=== PATIENT | male | born 1955 | race Caucasian/White ===

== ENCOUNTER → 2016-08-22 | Outpatient (CLI) | payer MEDICARE ==
[2016-08-22 13:36] LABS: Potassium 5.2 mmol/L (3.5-5.1)
== END | disposition home or self-care (01) ==
LOC: LABWHC1 13:06
PROVIDERS: ATTEND Family Medicine
DX: E87.5 Hyperkalemia (principal)
CPT/HCPCS: 36415; 80051

== ENCOUNTER → 2016-08-26 | Outpatient (CLI) | payer MEDICARE ==
[2016-08-26 16:18] LABS: Potassium 4.6 mmol/L (3.5-5.1)
== END | disposition home or self-care (01) ==
LOC: LABWHC1 15:57
PROVIDERS: ATTEND Nurse Practitioner Family
DX: E87.5 Hyperkalemia (principal)
CPT/HCPCS: 36415; 80051

== ENCOUNTER → 2019-02-04 | Outpatient (CLI) | payer MEDICARE ==
--- NOTE | 2019-02-04 20:48 | CONS ---
CONSULTATION DATE OF SERVICE: 02/04/2019 54-year-old gentleman has been evaluated [facility] for obstructive sleep apnea-hypopnea syndrome. HISTORY OF PRESENT ILLNESS SLEEP WAKE EVALUATION: Patient has history of obstructive sleep apnea for about 12 years. He was diagnosed with sleep apnea in [place]. He was started on treatment with CPAP, but when he moved to [place] in 2008 he lost his CPAP unit. SLEEP SCHEDULE: Presently his sleep schedule from 8 p.m. until 6 a.m. on basically 7 days a week. FALLING ASLEEP: No problems with falling asleep, although he has TV in bedroom. DURING SLEEP: He sleeps on the side position. He snores and has witnessed episodes of stopped breathing during the sleep. He wakes up gasping for air, panic attacks and nocturia up to 3 times. DURING THE DAY/SLEEP WAKE EVALUATION: No history of hypnagogic hallucinations, sleep paralysis or cataplexy. [place] Sleepiness Scale is 6. PAST MEDICAL HISTORY: Positive for COPD. PAST SURGICAL HISTORY: Bilateral surgery on the ears. SOCIAL HISTORY: Positive for smoking for 50 years, up to 2 packs per day, so subsequently about 100 pack year smoking. Alcohol consumption socially. The patient is a [employer] truck driver. MEDICATIONS: Motrin 500 mg. REVIEW OF SYSTEMS: Multiple awakenings from sleep, cough in the morning. PHYSICAL EXAM: gentleman without distress. BP 130/79, HR about 100, RR 16, height 5 feet 8 inches, weight 188, body mass index 28.5, temperature 97.7, oxygen saturation at room air 95%. Oropharynx: Low position of soft palate. Mallampati 4. Some restriction of nasal breathing. Wide neck 16-1/2 inches in circumference. Lungs few rales. Neck Supple, no JVD. Thyroid is not palpable. LUNGS: A few rales. HEART S1, S2 regular. No murmurs, gallops, or rubs. ABDOMEN Soft and nontender. Bowel sounds are present. No organomegaly appreciated. EXTREMITIES No clubbing or cyanosis. LICENSING WORKER Awake, alert, and oriented X3. Cranial nerves 2 to 7 intact. There is no fasciculation or atrophy. noted. No focal deficits observed. IMPRESSION: 1. Snoring, witnessed episodes of stopped breathing during the sleep, extremely low position of soft palate, wide neck, History of obstructive sleep apnea in the past. Obstructive sleep apnea-hypopnea syndrome. 2. History of smoking for about 100 pack years. 3. Chronic obstructive pulmonary disease. 4. Back problems. 5. Status post bilateral ear surgery. 6. A [employer] truck driver. PLAN: 1. Polysomnography for evaluation of patient's breathing during sleep. 2. CPAP/BiPAP titration if sleep study confirms obstructive sleep apnea-hypopnea syndrome. 3. Preferable position during sleep on the side. 4. No driving if patient feels any sleepiness. 5. I will see patient for follow up visit to explain results of testing and following plan. 6. I insisted for patient to find a primary care physician. 7. Smoking cessation problem. Sincerely, Tristan Rojas MD, PhD, FAASM Diplomat of [place] [employer] [place] [employer] Lace [facility] MMMYLESL / IJN: [id number] /
== END | disposition home or self-care (01) ==
LOC: SLEEP 14:09
PROVIDERS: ATTEND Internal Medicine
DX: G47.33 Obstructive sleep apnea (adult) (pediatric) (principal); J44.9 Chronic obstructive pulmonary disease, unspecified; M53.9 Dorsopathy, unspecified; Z87.891 Personal history of nicotine dependence; Z99.89 Dependence on other enabling machines and devices; Z79.1 Long term (current) use of non-steroidal anti-inflammatories (NSAID); Z98.890 Other specified postprocedural states
CPT/HCPCS: 99211

== ENCOUNTER 2020-03-22 08:28 | Inpatient (IN) | payer MEDICARE ==
[2020-03-22 08:44] VITALS: TEMP 98.2
[2020-03-22] MEDS ORDERED: ACETAMINOPHEN TAB 325 MG TAB PO STA (08:49)
[2020-03-22] MEDS ORDERED: SODIUM CHLORIDE 0.9% 1,000 ML IV ONE (08:50)
[2020-03-22] MEDS ORDERED: SODIUM CHLORIDE 0.9% 1,000 ML IV SCH (09:00)
[2020-03-22 09:22] LABS: Basophils # (A) 0.1 k/uL (0-0.2); Basophils % (A) 0 %; Eosinophils # (A) 0.3 k/uL (0-0.7); Eosinophils % (A) 2 %; HGB 16.2 gm/dL (13.0-17.5); Lymphocytes # (A) 0.8 k/uL (1.0-4.8); Lymphocytes % (A) 4 %; MCH 31.5 pg (25.0-35.0); MCHC 33.2 g/dL (31.0-37.0); MCV 94.8 fL (80.0-100.0); Mean Platelet Volume 7.6; Monocytes # (A) 0.8 k/uL (0-1.0); Monocytes % (A) 5 %; Neutrophils # (A) 16.1 k/uL (1.3-7.7); Neutrophils % (A) 88 %; Platelet Count 261 k/uL (150-450); RBC 5.16 m/uL (4.30-5.90); RDW 12.7 % (11.5-15.5); WBC 18.3 k/uL (3.8-10.6)
--- NOTE | 2020-03-22 09:24 | XR ---
EXAMINATION TYPE: XR chest 1V portable DATE OF EXAM: 03/22/2020 Comparison: None Clinical History: 65-year-old male fever and chills, Suspected COVID-19 pneumonia Findings: Heart normal size. Aorta and pulmonary vasculature within normal limits. Some phleboliths emphysemato us change in the upper lungs. Dense consolidation in the periphery of the right upper and midlung. No pleural effusion. Impression: COPD with dense consolidation in the periphery of the right upper and midlung. Findings suggest pneum onia.
[2020-03-22] MEDS ORDERED: IPRATROPIUM-ALBUTEROL 3 ML NEB INHALATION STA (09:29)
[2020-03-22] MEDS ORDERED: AZITHROMYCIN 500 MG in SODIUM CHLORIDE 0.9% 250 ML IVPB STA (09:29)
[2020-03-22] MEDS ORDERED: methylPREDNISolone SOD SUCCI 125 MG/2 ML VIAL IV STA (09:29)
[2020-03-22 09:32] LABS: D-Dimer 0.59 mg/L FEU (<0.60)
[2020-03-22 09:33] LABS: Albumin 3.7 g/dL (3.5-5.0); Calcium 9.1 mg/dL (8.4-10.2); Partial Thromboplastin Time 28.3 sec (22.0-30.0); Potassium 4.6 mmol/L (3.5-5.1); Total Protein 7.5 g/dL (6.3-8.2)
--- NOTE | 2020-03-22 09:49 | ED ---
Headache HPI - General Chief Complaint: Headache Stated Complaint: SOB ,headache, fever Time Seen by Provider: 03/22/20 08:47 Mode of arrival: wheelchair Limitations: no limitations - History of Present Illness Initial Comments: 65yo male presents today for chief complaint of cough fever bodyaches headache. Patient states he has felt overall unwell for the past 3 days. He admits to increased SOB from baseline, cough body aches and slight headache. Denies neck stiffness. Patient denies nausea, vomiting diarrhea. Pt concerned of covid. Patient denies chest pain, pain with deep inspiration, leg swelling. Patient denies cardiac history. Patient denies history of DVT/PE. Patient upon arrival does not appear in distress. - Related Data Home Medications Medication Instructions Recorded Confirmed Fluticasone/Umeclidin/Vilanter 1 puff INHALATION RT-DAILY 03/22/20 03/22/20 [Trelegy Ellipta 100-62.5-25] Ibuprofen [Motrin] 800 mg PO Q6H PRN 03/22/20 03/22/20 Multivitamins, Thera [Multivitamin 1 tab PO DAILY 03/22/20 03/22/20 (formulary)] predniSONE 10 mg PO DAILY 03/22/20 03/22/20 Allergies Allergy/AdvReac Type Severity Reaction Status Date / Time Sulfa (Sulfonamide AdvReac Itching Verified 03/22/20 10:11 Antibiotics) Review of Systems ROS Statement: Those systems with pertinent positive or pertinent negative responses have been documented in the HPI. ROS Other: All systems not noted in ROS Statement are negative. Past Medical History Additional Past Medical History / Comment(s): slipped disc in neck and sciatic pain History of Any Multi-Drug Resistant Organisms: None Reported Past Surgical History: Ear Surgery Past Psychological History: No Psychological Hx Reported Smoking Status: Current every day smoker Past Alcohol Use History: None Reported Past Drug Use History: None Reported General Exam - General Exam Comments Initial Comments: General: The patient is awake and alert, in no distress Eye: +3 mm pupils are equal, round and reactive to light, extra-ocular movements are intact. No nystagmus. There is normal conjunctiva bilaterally. No signs of icterus. Ears, nose, mouth and throat: There are moist mucous membranes and no oral lesions. Neck: The neck is supple, there is no tenderness or JVD. Cardiovascular: There is a regular rate and rhythm. No murmur, rub or gallop is appreciated. Respiratory: Lungs are clear to auscultation, respirations are non-labored, breath sounds are equal. No wheezes, stridor, rales, or rhonchi. Gastrointestinal: Soft, non-distended, non-tender abdomen without masses or organomegaly noted. There is no rebound or guarding present. Musculoskeletal: Normal ROM, no tenderness. Strength 5/5. Sensation intact. Radial pulses equal bilaterally 2+. Neurological: A&O x 3. CN II-XII intact grossly, There are no obvious motor or sensory deficits. Coordination appears grossly intact. Speech is normal. Skin: Skin is warm and dry and no rashes or lesions are noted. No LE edema. Psychiatric: Cooperative, appropriate mood & affect, normal judgment. Limitations: no limitations Course Vital Signs 03/22/20 03/22/20 03/22/20 08:39 11:07 11:17 Temperature 98.2 F Pulse Rate 67 80 79 Respiratory 20 Rate Blood Pressure 94/65 O2 Sat by Pulse 95 Oximetry Medical Decision Making - Medical Decision Making White count elevated. CXR concerning for pneumonia. Patient symptoms appear consistent. Patient covid (-). patient will be admitted for iv abx and monitoring. patient agreeable dr. clark accepted admission. - Lab Data Result diagrams: 03/22/20 09:05 03/22/20 09:05 Lab Results 03/22/20 03/22/20 03/22/20 Range/Units 09:05 09:05 09:05 WBC 18.3 H (3.8-10.6) k/uL RBC 5.16 (4.30-5.90) m/uL Hgb 16.2 (13.0-17.5) gm/dL Hct 49.0 (39.0-53.0) % MCV 94.8 (80.0-100.0) fL MCH 31.5 (25.0-35.0) pg MCHC 33.2 (31.0-37.0) g/dL RDW 12.7 (11.5-15.5) % Plt Count 261 (150-450) k/uL MPV 7.6 Neutrophils % 88 % Lymphocytes % 4 % Monocytes % 5 % Eosinophils % 2 % Basophils % 0 % Neutrophils # 16.1 H (1.3-7.7) k/uL Lymphocytes # 0.8 L (1.0-4.8) k/uL Monocytes # 0.8 (0-1.0) k/uL Eosinophils # 0.3 (0-0.7) k/uL Basophils # 0.1 (0-0.2) k/uL PT 10.0 (9.0-12.0) sec INR 1.0 (<1.2) APTT 28.3 (22.0-30.0) sec D-Dimer 0.59 (<0.60) mg/L FEU Sodium 132 L (137-145) mmol/L Potassium 4.6 (3.5-5.1) mmol/L Chloride 103 (98-107) mmol/L Carbon Dioxide 23 (22-30) mmol/L Anion Gap 6 mmol/L BUN 24 H (9-20) mg/dL Creatinine 1.26 H (0.66-1.25) mg/dL Est GFR (CKD-EPI)AfAm 68 (>60 ml/min/1.73 sqM) Est GFR (CKD-EPI)NonAf 59 (>60 ml/min/1.73 sqM) Glucose 125 H (74-99) mg/dL Plasma Lactic Acid Axel (0.7-2.0) mmol/L Calcium 9.1 (8.4-10.2) mg/dL Magnesium 2.0 (1.6-2.3) mg/dL Total Bilirubin 1.0 (0.2-1.3) mg/dL AST 21 (17-59) U/L ALT 19 (4-49) U/L Alkaline Phosphatase 81 (38-126) U/L Lactate Dehydrogenase 503 (313-618) U/L C-Reactive Protein 189.7 H (<10.0) mg/L Total Protein 7.5 (6.3-8.2) g/dL Albumin 3.7 (3.5-5.0) g/dL 03/22/20 Range/Units 09:05 WBC (3.8-10.6) k/uL RBC (4.30-5.90) m/uL Hgb (13.0-17.5) gm/dL Hct (39.0-53.0) % MCV (80.0-100.0) fL MCH (25.0-35.0) pg MCHC (31.0-37.0) g/dL RDW (11.5-15.5) % Plt Count (150-450) k/uL MPV Neutrophils % % Lymphocytes % % Monocytes % % Eosinophils % % Basophils % % Neutrophils # (1.3-7.7) k/uL Lymphocytes # (1.0-4.8) k/uL Monocytes # (0-1.0) k/uL Eosinophils # (0-0.7) k/uL Basophils # (0-0.2) k/uL PT (9.0-12.0) sec INR (<1.2) APTT (22.0-30.0) sec D-Dimer (<0.60) mg/L FEU Sodium (137-145) mmol/L Potassium (3.5-5.1) mmol/L Chloride (98-107) mmol/L Carbon Dioxide (22-30) mmol/L Anion Gap mmol/L BUN (9-20) mg/dL Creatinine (0.66-1.25) mg/dL Est GFR (CKD-EPI)AfAm (>60 ml/min/1.73 sqM) Est GFR (CKD-EPI)NonAf (>60 ml/min/1.73 sqM) Glucose (74-99) mg/dL Plasma Lactic Acid Axel 1.3 (0.7-2.0) mmol/L Calcium (8.4-10.2) mg/dL Magnesium (1.6-2.3) mg/dL Total Bilirubin (0.2-1.3) mg/dL AST (17-59) U/L ALT (4-49) U/L Alkaline Phosphatase (38-126) U/L Lactate Dehydrogenase (313-618) U/L C-Reactive Protein (<10.0) mg/L Total Protein (6.3-8.2) g/dL Albumin (3.5-5.0) g/dL Disposition Clinical Impression: Fever, Dyspnea, Cough, Pneumonia Disposition: ADMITTED IP TO THIS [facility] Condition: Stable Is patient prescribed a controlled substance at d/c from ED?: No Time of Disposition: 12:17 Decision to Admit Reason: Admit from EC Decision Date: 03/22/20 Decision Time: 10:00
[2020-03-22] MEDS ORDERED: NALOXONE 0.4 MG/ML 1 ML VIAL IV PRN (09:58)
[2020-03-22 10:26] LABS: C Reactive Protein 189.7 mg/L (<10.0)
[2020-03-22 12:34] VITALS: RESP 18
--- NOTE | 2020-03-22 14:02 | P.HPIM ---
History of Present Illness Please consider this note as combined H&P and discharge summary This is a pleasant 65 years old male with no significant past medical history except for sciatic pain. Presents because of cough and headache and fever. Patient denies dyspnea, and exited through a phlegm but no chest pain. He said he came to the hospital because he wanted to check for viral infection and Covid, however he was informed that the disc and back negative and now he wants to leave. I told the patient that she has right lung pneumonia and he will need IV antibiotics however does not want to stay in the hospital, risks including but not limited to worsening pneumonia, respiratory failure, intubation, organ dysfunction, sepsis, and/or are explained to him he verbalized understanding but he does not want to stay in the hospital. I told the patient is as anything I can do to prevent him from leaving AMA and he said no. Based upon my evaluation patient has capacity to make medical decision Admission vitals are 101/84, saturating 96% on room air, breathing rate is 18 and heart rate is 82, his of febrile with temperature 98.2 that showed leukocytosis of 18.3 with lymphocytes 0.8 which is low. Sodium was slightly low at 132, creatinine slightly elevated at 1.26. Glucose 125. Coronary varus not detected. C-reactive protein is slightly elevated at 189. Chest x-ray showing COPD with dense consolidation in the periphery of the right upper and midline suggesting pneumonia An emergency room he received Tylenol, 2 L of normal saline, started on ceftriaxone and azithromycin and sewn withdrawal once. Patient he says that he smokes 1.5 pack per day Mellisa is counseled that he does not want to quit Review of Systems CONSTITUTIONAL: No fever, no malaise, no fatigue. HEENT: No recent visual problems or hearing problems. Denied any sore throat. CARDIOVASCULAR: No orthopnea, PND, no palpitations, no syncope. PULMONARY: No shortness of breath, no cough, no hemoptysis. GASTROINTESTINAL: No diarrhea, no nausea, no vomiting, no abdominal pain. Normoactive bowel sounds. NEUROLOGICAL: No headaches, no weakness, no numbness. HEMATOLOGICAL: Denies any bleeding or petechiae. GENITOURINARY: Denies any burning micturition, frequency, or urgency. MUSCULOSKELETAL/RHEUMATOLOGICAL: Denies any joint pain, swelling, or any muscle pain. ENDOCRINE: Denies any polyuria or polydipsia. Past Medical History Additional Past Medical History / Comment(s): slipped disc in neck and sciatic pain History of Any Multi-Drug Resistant Organisms: None Reported Past Surgical History: Ear Surgery Past Psychological History: No Psychological Hx Reported Smoking Status: Current every day smoker Past Alcohol Use History: None Reported Past Drug Use History: None Reported Medications and Allergies Home Medications Medication Instructions Recorded Confirmed Type Fluticasone/Umeclidin/Vilanter 1 puff INHALATION RT-DAILY 03/22/20 03/22/20 History [Trelegy Ellipta 100-62.5-25] Ibuprofen [Motrin] 800 mg PO Q6H PRN 03/22/20 03/22/20 History Multivitamins, Thera [Multivitamin 1 tab PO DAILY 03/22/20 03/22/20 History (formulary)] predniSONE 10 mg PO DAILY 03/22/20 03/22/20 History Allergies Allergy/AdvReac Type Severity Reaction Status Date / Time Sulfa (Sulfonamide AdvReac Itching Verified 03/22/20 10:11 Antibiotics) Physical Exam Vitals: Vital Signs Temp Pulse Resp BP Pulse Ox 03/22/20 12:34 82 18 101/84 96 03/22/20 11:17 79 03/22/20 11:07 80 03/22/20 08:39 98.2 F 67 20 94/65 95 Intake and Output 03/21/20 03/22/20 03/22/20 22:59 06:59 14:59 Other: Weight 83.915 kg GENERAL: The patient is alert and oriented x3, not in any acute distress. Well developed, well nourished. HEENT: Pupils are round and equally reacting to light. EOMI. No scleral icterus. No conjunctival pallor. Normocephalic, atraumatic. No pharyngeal erythema. No thyromegaly. CARDIOVASCULAR: S1 and S2 present. No murmurs, rubs, or gallops. PULMONARY: Chest is clear to auscultation, no wheezing or crackles. ABDOMEN: Soft, nontender, nondistended, normoactive bowel sounds. No palpable organomegaly. MUSCULOSKELETAL: No joint swelling or deformity. EXTREMITIES: No cyanosis, clubbing, or pedal edema. NEUROLOGICAL: Gross neurological examination did not reveal any focal deficits. SKIN: No rashes. No petechiae Results CBC & Chem 7: 03/22/20 09:05 03/22/20 09:05 Labs: Abnormal Lab Results - Last 24 Hours (Table) 03/22/20 03/22/20 Range/Units 09: 09:05 WBC 18.3 H (3.8-10.6) k/uL Neutrophils # 16.1 H (1.3-7.7) k/uL Lymphocytes # 0.8 L (1.0-4.8) k/uL Sodium 132 L (137-145) mmol/L BUN 24 H (9-20) mg/dL Creatinine 1.26 H (0.66-1.25) mg/dL Glucose 125 H (74-99) mg/dL C-Reactive Protein 189.7 H (<10.0) mg/L Assessment and Plan Assessment: right upper mid lung consolidations suspicious for pneumonia COPD Leukocytosis Nonadherence to therapy, patient wants to leave AMA Plan: this is a pleasant 65 years old male who presents with possible pneumonia. Covid test is negative . Patient received antibiotics however he decided to leave AMA, see above note for more information Patient was instructed to follow up with his PCP as soon as possible, he told me he is going to see Dr. Talisha colon
[2020-03-22 14:05] VITALS: BP 114/86; PULSE 81
[2020-03-22 16:46] LABS: Ferritin 197.9 ng/mL (22.0-322.0)
[2020-03-22] MEDS ORDERED: FAMOTIDINE 20 MG/2 ML VIAL IV SCH (21:00)
[2020-03-23] MEDS ORDERED: ENOXAPARIN 30 MG/0.3 ML SYRINGE SQ SCH (09:00)
[2020-03-23] MEDS ORDERED: AZITHROMYCIN 500 MG in SODIUM CHLORIDE 0.9% 250 ML IVPB SCH (09:00)
== END 2020-03-22 18:25 | disposition home or self-care (01) | DRG 194 ==
LOC: EC 08:28 → 4SSUR 10:05
PROVIDERS: ADMIT Internal Medicine; ATTEND Internal Medicine
DX: J18.9 Pneumonia, unspecified organism (principal); J44.0 Chronic obstructive pulmonary disease with (acute) lower respiratory infection; M50.20 Other cervical disc displacement, unspecified cervical region; Z20.828 Contact with and (suspected) exposure to other viral communicable diseases; M54.30 Sciatica, unspecified side; F17.210 Nicotine dependence, cigarettes, uncomplicated; Z71.6 Tobacco abuse counseling; Z79.51 Long term (current) use of inhaled steroids; Z79.52 Long term (current) use of systemic steroids; Z79.899 Other long term (current) drug therapy; Z88.2 Allergy status to sulfonamides
CPT/HCPCS: 36415; 71045; 80053; 82728; 83605; 83615; 83735; 84145; 85025; 85379; 85610; 85730; 86140; 87040; 87635; 93005; 94640; 96361; 96365; 96366; 96367; 96368; 96375; 99285

== ENCOUNTER → 2024-01-14 | Outpatient (CLI) | payer MEDICARE ==
--- NOTE | 2024-01-17 11:24 | CT ---
EXAMINATION TYPE: CT lumbar spine wo con CT DLP: 917.7 mGycm, Automated exposure control for dose reduction was used. DATE OF EXAM: 01/14/2024 3:16 PM COMPARISON: 11/24/2023, 10/11/2021. CLINICAL INDICATION: Male, 69 years old with history of M48.061 SPINAL STENOSIUS M54.10; PHH, Presurg ical planning TECHNIQUE: Multiple axial images were obtained from the midportion of T11 through the sacroiliac jovita nts. Soft tissue and bone windows in coronal and sagittal planes were obtained and reviewed. Contrast used: mL of , (None, if empty). Oral contrast used: (None, if empty). FINDINGS: Alignment: There are 5 lumbar type vertebral bodies within normal alignment. Bone: No evidence of fracture is identified. Multilevel degeneration changes with osteophyte formati on, disc space narrowing, facet joint arthropathy. Degeneration worse at L1-L2 and L2-L3 adjoining en dplates with endplate sclerosis and vacuum disc phenomenon worse at this level. Pseudoarthrosis of th e spinous processes. Discs: T12-L1: Facet joint arthropathy and disc bulging result with mild spinal canal stenosis and moderate bilateral neural foraminal stenosis. L1-L2: Facet joint arthropathy and disc bulging result with moderate to severe spinal canal stenosis and moderate bilateral neural foraminal stenosis. L2-L3: Facet joint arthropathy and disc bulging result with moderate to severe spinal canal stenosis and moderate bilateral neural foraminal stenosis. L3-L4: Facet joint arthropathy and disc bulging result with moderate spinal canal stenosis and modera te bilateral neural foraminal stenosis. L4-L5: Facet joint arthropathy and disc bulging result with mild to moderate spinal canal stenosis an d and moderate to severe bilateral neural foraminal stenosis. L5-S1: Facet joint arthropathy and disc bulging result with mild spinal canal stenosis and mild bilat eral neural foraminal stenosis. Other: None IMPRESSION: 1. No evidence for spinal fracture. 2. Moderate degeneration changes throughout the spine. Moderate multilevel neural foraminal stenosis. Neural foraminal stenosis worse on the left at L4-L5 and on the right at L2-L3, L3-L4 and L4-L5. 3. Moderate to severe spinal canal stenosis at and L1-L2 no 2 L3.
== END | disposition home or self-care (01) ==
LOC: RADCTMAIN 14:59
PROVIDERS: ATTEND Orthopaedic Surgery
DX: M47.26 Other spondylosis with radiculopathy, lumbar region (principal); M48.061 Spinal stenosis, lumbar region without neurogenic claudication
CPT/HCPCS: 72131